=== PATIENT | male | born 1960 | race Caucasian/White ===

== ENCOUNTER 2021-08-22 05:52 | Inpatient (IN) ==
[2021-08-22] MEDS ORDERED: Lactated Ringers 1000 ml BAG 1,000 ML IV SCH ×2 (06:00→11:00)
[2021-08-22] MEDS ORDERED: Buffered Lidocaine 1% SYRIN 1 ml INTRADERM ONE (06:00)
[2021-08-22] MEDS ORDERED: Clindamycin 900 MG/D5W BAG 900 MG/50 ML BAG IVPB ONE (06:19)
[2021-08-22] MEDS ORDERED: Bupivacaine 0.5% SDV PF 30ML VIAL ONE ×2 (06:29→07:11)
[2021-08-22] MEDS ORDERED: Midazolam 2 mg/2 ml VIAL 1 mg/ml 2 ml VIAL (2 mg) ONE (06:30)
[2021-08-22] MEDS ORDERED: Dexamethasone IV 4 MG/ML VIAL 1 ml VIAL ONE (06:30)
[2021-08-22] MEDS ORDERED: fentaNYL 100 mcg/2 ml 50 MCG/ML VIAL ONE (06:30)
[2021-08-22] MEDS ORDERED: Bupivacaine 0.25% SDV 30 ML ONE (07:08)
[2021-08-22] MEDS ORDERED: Lidocaine 1% MPF 5 ML VIAL ONE (07:23)
[2021-08-22] MEDS ORDERED: Propofol 10 MG/ML 20 ML BTL ONE ×2 (07:43→09:51)
[2021-08-22] MEDS ORDERED: Lidocaine 2% PF 5 ML VIAL ONE (07:46)
[2021-08-22] MEDS ORDERED: Glycopyrrolate IV 0.2 MG/ML 1 ML VIAL ONE (08:11)
[2021-08-22] MEDS ORDERED: EPHEDrine (Pressors) 50 MG/ML VIAL ONE (08:17)
[2021-08-22] MEDS ORDERED: Ondansetron 4 mg VIAL 2 MG/ML 2 ml VIAL ONE (08:28)
[2021-08-22] MEDS ORDERED: HYDROmorphone 1 MG/1 ML SYRINGE ONE (08:52)
[2021-08-22] MEDS ORDERED: Phenylephrine 40 mcg/mL 10mL (400mcg) SYRINGE ONE (09:04)
[2021-08-22] MEDS ORDERED: Ondansetron ODT 4 mg TAB 4 MG TAB PO PRN ×2 (09:10→10:02)
[2021-08-22] MEDS ORDERED: diPHENhydraMINE IV 50 MG/ML 1 ml VIAL (BENADRYL) IV PRN ×2 (09:10→10:02)
[2021-08-22] MEDS ORDERED: Naloxone 0.4 mg VIAL 0.4 mg/ml 1 ml VIAL IV PRN (09:10)
[2021-08-22] MEDS ORDERED: HYDROmorphone 1 MG/1 ML SYRINGE IV PRN (09:10)
[2021-08-22] MEDS ORDERED: Acetaminophen IV 1 GM/100ML 100 ML IV ONE (09:46)
[2021-08-22] MEDS ORDERED: Magnesium Hydroxide LIQ 30 ML UDC PO PRN (10:02)
[2021-08-22] MEDS ORDERED: Ondansetron 4 mg VIAL 2 MG/ML 2 ml VIAL IV PRN (10:02)
[2021-08-22] MEDS ORDERED: diPHENhydraMINE 25 mg TAB PO PRN (10:02)
[2021-08-22] MEDS ORDERED: Lactulose 30 ml UDC PO PRN (10:02)
[2021-08-22] MEDS ORDERED: Albuterol HFA INHALER 8 gm MDI INH PRN (10:10)
[2021-08-22] MEDS ORDERED: oxyCODONE/Acetamin 5/325 mg TAB PO PRN (10:10)
[2021-08-22] MEDS ORDERED: Dextrose 50% Syringe 50 ml 25 GM/50 ML SYRINGE IV PUSH PRN (10:27)
[2021-08-22] MEDS ORDERED: Albuterol 2.5mg/3 ml (0.083%) NEB.SOLN INH PRN (10:28)
[2021-08-22] MEDS: Clindamycin 600 MG/D5W BAG 600 MG/50 ML BAG IV SCH ×2 (16:07→23:51)
[2021-08-22] MEDS: Morphine 2 MG/ML SYRINGE IV PRN ×2 (16:07→20:18)
[2021-08-22] MEDS ORDERED: Fluticasone NASAL SPRAY 50MCG 16 gm SPRAY BTL INTRANASAL SCH (18:00)
[2021-08-22] MEDS: Mometasone/Formoter 200/5 MDI INH SCH (19:26)
[2021-08-22] MEDS: oxyCODONE SR 15 mg TAB PO SCH (20:18)
[2021-08-22] MEDS: Magnesium Hydroxide LIQ 30 ML UDC PO SCH (20:19)
[2021-08-23 06:56] LABS: Hematocrit 36 % (42-52); Hemoglobin 12.2 g/dL (14.0-18.0); Mean Platelet Volume 9.1 fL (7.4-10.4); Platelet Count 117 10^3/uL (150-450)
[2021-08-23 07:20] LABS: Potassium 4.2 mmol/L (3.5-5.0)
[2021-08-23] MEDS: Mometasone/Formoter 200/5 MDI INH SCH (07:48)
[2021-08-23 07:56] VITALS: BP 130/75
[2021-08-23] MEDS: Magnesium Hydroxide LIQ 30 ML UDC PO SCH (08:05)
[2021-08-23] MEDS ORDERED: Potassium Chlor 20 meq TAB.ER PO SCH (09:00)
[2021-08-23] MEDS ORDERED: MAGNESIUM 500 MG PO SCH (09:00)
[2021-08-23] MEDS ORDERED: Vitamin THERAPEUTIC TAB PO SCH (09:00)
[2021-08-23] MEDS: Clindamycin 600 MG/D5W BAG 600 MG/50 ML BAG IV SCH (09:19)
[2021-08-23] MEDS: oxyCODONE SR 15 mg TAB PO SCH (09:23)
[2021-08-23] MEDS ORDERED: Enoxaparin 40 MG/0.4 ML SYR SUBCUT SCH (12:00)
== END 2021-08-23 12:00 | disposition home or self-care (01) | DRG 505 ==
LOC: AA 05:52 → SSU 11:41
PROVIDERS: ADMIT Orthopaedic Surgery; ATTEND Orthopaedic Surgery